=== PATIENT | male | born 1990 | race Caucasian/White ===

== ENCOUNTER 2017-04-30 23:17 | Emergency (ER) | payer OTHER ==
[2017-04-30 23:25] VITALS: O2SAT 95
[2017-04-30] MEDS ORDERED: ONDANSETRON DISINTEGRATING 4 MG TAB ONE (23:26)
[2017-04-30] MEDS ORDERED: ONDANSETRON DISINTEGRATING 4 MG TAB PO ONE (23:27)
[2017-04-30] MEDS ORDERED: NS 1,000 ML IV ONE (23:56)
[2017-05-01 00:28] LABS: ANION GAP 16 mEq/L (8-16); CALCIUM 9.5 mg/dL (8.5-10.4); CARBON DIOXIDE 19 mEq/l (22-31); CHLORIDE 107 mEq/L (97-110); CREATININE 1.1 mg/dL (0.7-1.3); GLOMERULAR FILTRATION RATE > 60; GLUCOSE 89 mg/dL (70-100); POTASSIUM 4.5 mEq/L (3.5-5.2); SODIUM 142 mEq/L (134-144)
[2017-05-01 00:31] LABS: % IMMATURE GRANULYOCYTES 0.5 % (0.0-1.1); ABSOLUTE IMMATURE GRANULOCYTES 0.03 10^3/uL (0.00-0.10); ADD DIFF? NO; ADD MORPH? NO; ADD SCAN? NO; ATYPICAL LYMPHOCYTE FLAG 10 (0-99); FRAGMENT RBC FLAG 0 (0-99); HEMATOCRIT 44.2 % (40.0-51.0); HEMOGLOBIN 15.1 g/dL (13.7-17.5); LEFT SHIFT FLG 0 (0-99); LIPEMIA HEMOLYSIS FLAG 90 (0-99); MEAN CELL HEMOGLOBIN CONCENTR. 34.2 g/dL (32.4-36.7); MEAN CELL VOLUME 87.7 fL (81.5-99.8); MEAN PLATELET VOLUME 9.9 fL (8.7-11.7); PLATELET CLUMPS FLAG 10 (0-99); PLATELET COUNT 331 10^3/uL (150-400); RED BLOOD CELL COUNT 5.04 10^6/uL (4.40-6.38); RED CELL DISTRIBUTION WIDTH 11.9 % (11.5-15.2)
--- NOTE | 2017-05-01 01:09 | EDPHY ---
H & P Stated Complaint: abd pain Time Seen by Provider: 05/01/17 00:53 HPI/ROS: HPI The patient presents with abdominal pain, vomiting, anxiety and dizziness for the last several hours. He is status post what sounds to be perianal abscess drainage [address] Edward. He is having pain which she has had postoperatively, though it got worse after drinking several alcoholic drinks tonight. The pain is sharp, does not radiate, and is associated with vomiting. He has been able to tolerate fluids since receiving a L of normal saline in the ER. He is on Percocet for pain. He is actually now feeling better. REVIEW OF SYSTEMS Constitutional: No fever, no chills. Eyes: No discharge. ENT: No sore throat. Cardiovascular: No chest pain, no palpitations. Respiratory: No cough, no shortness of breath. Gastrointestinal: See HPI Genitourinary: No hematuria. Musculoskeletal: No back pain. Skin: No rashes. Neurological: No headache. PMHx: History of anxiety, 5 days status post incision and drainage of rectal abscess per his report Soc Hx: Housed, alcohol use PHYSICAL General Appearance: Alert, no distress Eyes: Pupils equal and round no pallor or injection ENT, Mouth: Mucous membranes moist Respiratory: There are no retractions, lungs are clear to auscultation Cardiovascular: Regular rate and rhythm Gastrointestinal: Abdomen is soft and non-tender, no masses, bowel sounds normal Rectal: There is a 1 cm surgical incision at approximately 5 o'clock distal to the anal verge which is tender to palpation draining a small amount of serous fluid, there is no erythema, warmth, area of fluctuance Neurological: A&O, moves all extremities Skin: Warm and dry, no rashes Musculoskeletal: Neck is supple non tender Extremities: symmetrical, full range of motion Psychiatric: Patient is oriented X 3, there is no agitation Source: Patient Exam Limitations: No limitations - Personal History Current Tetanus/Diphtheria Vaccine: Yes Current Tetanus Diphtheria and Acellular Pertussis (TDAP): Yes Tetanus Vaccine Date: Within the last ten years - Medical/Surgical History Hx Asthma: Yes Hx Chronic Respiratory Disease: No Hx Diabetes: No Hx Cardiac Disease: No Hx Renal Disease: No Hx Cirrhosis: No Hx Alcoholism: No Hx HIV/AIDS: No Hx Splenectomy or Spleen Trauma: No Other PMH: hernia surgery, bipolar, anxiety, depression, rectal abcess, gastric ulcers - Social History Smoking Status: Never smoked Constitutional: Initial Vital Signs Temperature (C) 36.9 C 04/30/17 23:23 Heart Rate 108 H 04/30/17 23:23 Respiratory Rate 20 04/30/17 23:23 Blood Pressure 143/93 H 04/30/17 23:23 O2 Sat (%) 95 04/30/17 23:23 O2 Delivery Mode Room Air Allergies/Adverse Reactions: lamotrigine [From Lamictal] Allergy (Verified 04/14/15 21:41) oxcarbazepine [From Trileptal] Allergy (Verified 04/14/15 21:41) Home Medications: Medication Instructions Recorded ALPRAZolam [Xanax 1 MG (*)] 1 mg PO BID PRN 09/02/14 Cetirizine [ZyrTEC 10 mg (*)] 10 mg PO DAILY 09/03/14 Abilify 04/14/15 Depakote 04/14/15 Duloxetine HCl 04/14/15 Ondansetron Odt [Zofran Odt 4 mg 4 mg PO Q4PRN PRN #7 tab 04/14/15 (*)] Ondansetron Odt [Zofran Odt 4 mg 4 mg PO Q4PRN PRN #20 tab 05/31/15 (*)] Keflex 04/30/17 Medical Decision Making Differential Diagnosis: This is a 27-year-old male who is 5 days status post incision and drainage of perianal abscess. He is presenting from home after drinking several alcoholic drinks and having worsening pain. He does not have any fever. Labs were checked and there is no leukocytosis. I feel this is normal postoperative pain. Differential diagnosis includes recurrent abscess, bowel obstruction, alcohol intoxication. In the emergency room, the patient received a L of IV fluid for vomiting. He felt well afterwards. Labs were checked and he will be discharged with instructions to follow up with his surgeon as an outpatient. - Data Points Laboratory Results: Laboratory Results 04/30/17 23:46 04/30/17 23:46 04/30/17 04/30/17 23:46 23:46 WBC 6.08 10^3/uL 10^3/uL (3.80-9.50) RBC 5.04 10^6/uL 10^6/uL (4.40-6.38) Hgb 15.1 g/dL g/dL (13.7-17.5) Hct 44.2 % % (40.0-51.0) MCV 87.7 fL fL (81.5-99.8) MCH 30.0 pg pg (27.9-34.1) MCHC 34.2 g/dL g/dL (32.4-36.7) RDW 11.9 % % (11.5-15.2) Plt Count 331 10^3/uL 10^3/uL (150-400) MPV 9.9 fL fL (8.7-11.7) Neut % (Auto) 55.4 % % (39.3-74.2) Lymph % (Auto) 35.4 % % (15.0-45.0) [place] % (Auto) 6.3 % % (4.5-13.0) Eos % (Auto) 1.6 % % (0.6-7.6) Baso % (Auto) 0.8 % % (0.3-1.7) Nucleat RBC Rel Count 0.0 % % (0.0-0.2) Absolute Neuts (auto) 3.37 10^3/uL 10^3/uL (1.70-6.50) Absolute Lymphs (auto) 2.15 10^3/uL 10^3/uL (1.00-3.00) Absolute Monos (auto) 0.38 10^3/uL 10^3/uL (0.30-0.80) Absolute Eos (auto) 0.10 10^3/uL 10^3/uL (0.03-0.40) Absolute Basos (auto) 0.05 10^3/uL 10^3/uL (0.02-0.10) Absolute Nucleated RBC 0.00 10^3/uL 10^3/uL (0-0.01) Immature Gran % 0.5 % % (0.0-1.1) Immature Gran # 0.03 10^3/uL 10^3/uL (0.00-0.10) Sodium 142 mEq/L mEq/L (134-144) Potassium 4.5 mEq/L mEq/L (3.5-5.2) Chloride 107 mEq/L mEq/L (97-110) Carbon Dioxide 19 mEq/l L mEq/l (22-31) Anion Gap 16 mEq/L mEq/L (8-16) BUN 13 mg/dL mg/dL (7-23) Creatinine 1.1 mg/dL mg/dL (0.7-1.3) Estimated GFR > 60 Glucose 89 mg/dL mg/dL (70-100) Calcium 9.5 mg/dL mg/dL (8.5-10.4) Medications Given: Discontinued Medications Sodium Chloride (Ns) 1,000 mls @ 0 mls/hr IV ONCE ONE; Wide Open PRN Reason: Protocol Stop: 04/30/17 23:57 Last Admin: 04/30/17 23:56 Dose: 1,000 mls Ondansetron HCl (Zofran Odt) 4 mg PO EDNOW ONE Stop: 04/30/17 23:28 Last Admin: 04/30/17 23:28 Dose: 4 mg Departure - Departure Disposition: Home, Routine, Self-Care Clinical Impression: Rectal pain Vomiting Qualifiers: Vomiting type: unspecified Vomiting Intractability: non-intractable Nausea presence: with nausea Qualified Code(s): R11.2 - Nausea with vomiting, unspecified Condition: Good Instructions: Rectal Pain (ED) Referrals: ENOCH PARSONS [Primary Care Provider] - As per Instructions Jay Alvarado MD [Medical Doctor] - As per Instructions
[2017-05-01 01:17] VITALS: BP 134/85; PULSE 91; RESP 16; TEMP 98.2
== END 2017-05-01 01:17 | disposition home or self-care (01) ==
DX: K62.89 Other specified diseases of anus and rectum (principal); R11.2 Nausea with vomiting, unspecified

== ENCOUNTER 2018-01-12 21:39 | Emergency (ER) | payer OTHER ==
[2018-01-12 21:50] VITALS: RESP 18
[2018-01-12 23:27] LABS: PLATELET COUNT 296 10^3/uL (150-400)
--- NOTE | 2018-01-12 23:32 | EDPHY ---
H & P Time Seen by Provider: 01/12/18 22:53 HPI/ROS: CHIEF COMPLAINT: Cough, extreme fatigue HISTORY OF PRESENT ILLNESS: 27-year-old male presents to the emergency department with ongoing cough for last 3 weeks. He states that he has been to urgent care twice. He was on prednisone and Zofran finished 1 week ago. Prior to that he went to another urgent care and had negative influenza negative strep pharyngitis. He was given Tessalon Perles for the cough. No vomiting currently. He has felt nauseous. The patient has described extreme fatigue over last week. He feels short of breath. He is concerned that he may have pneumonia. He did receive a flu shot this year. His girlfriend is not ill with similar symptoms. No recent travel. Patient currently describes extreme diffuse headache. No neck or back pain. No abdominal pain or vomiting. REVIEW OF SYSTEMS: Constitutional: Subjective fevers, chills Eyes: No double or blurry vision. ENT: Sore throat now mostly resolved Respiratory: Cough, shortness of breath Cardiac: No chest pain. Gastrointestinal: Nausea. No abdominal pain, vomiting or diarrhea. Genitourinary: No dysuria. Musculoskeletal: No neck or back pain. Skin: No rashes. Neurological: headache. Past Medical/Surgical History: Depression, anxiety, bipolar, hernia repair, gastric ulcers, rectal abscess Primary care provider is Dr. Enoch Parsons Social History: Single Smoking Status: Never smoked Physical Exam: General Appearance: Alert, no distress. Palpable lump to the left parietal aspect of the scalp. No palpable crepitus or other bony abnormality. No evidence of depressed skull fracture. Eyes: Pupils equal and round. Extraocular motions are all intact. ENT: Mouth: Mucous membranes moist. Respiratory: No wheezing, rhonchi, or rales, lungs are clear to auscultation. Cardiovascular: Regular rate and rhythm. Gastrointestinal: Abdomen is soft and nontender, no masses, no rebound or guarding, bowel sounds normal. Neurological: Alert and oriented x 3, cranial nerves II through XII grossly intact Skin: Warm and dry, no rashes. Musculoskeletal: Nontender to palpate along the cervical, thoracic or lumbar spine. Neck is supple. Extremities: Full range of motion and no peripheral edema. Psychiatric: Patient is oriented X 3, there is no agitation. Constitutional: Initial Vital Signs Temperature (C) 37.0 C 01/12/18 21:47 Heart Rate 107 H 01/12/18 21:47 Respiratory Rate 18 01/12/18 21:47 Blood Pressure 154/109 H 01/12/18 21:47 O2 Sat (%) 93 01/12/18 21:47 O2 Delivery Mode Room Air Allergies/Adverse Reactions: lamotrigine [From Lamictal] Allergy (Verified 01/12/18 21:50) oxcarbazepine [From Trileptal] Allergy (Verified 01/12/18 21:50) Home Medications: Medication Instructions Recorded ALPRAZolam [Xanax 1 MG (*)] 1 mg PO BID PRN 09/02/14 Cetirizine [ZyrTEC 10 mg (*)] 10 mg PO DAILY 09/03/14 Abilify 04/14/15 Depakote 04/14/15 Duloxetine HCl 04/14/15 [place] Carbonate 01/12/18 Medical Decision Making - Diagnostics Imaging Results: Imaging Impressions Chest X-Ray 01/12/18 23:13 Impression: Normal chest. Head CT 01/12/18 23:14 Impression: Normal noncontrast CT of the brain. 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 Results called to. Ann Altamirano PA-C at the time of the interpretation. Imaging: I viewed and interpreted images myself ED Course/Re-evaluation: 27-year-old male presents to the emergency department with cough, extreme fatigue and shortness of breath. Chest x-ray has been ordered and is pending. I do not think repeat influenza swab for RSV swab indicated as the patient has been sick for over 3 weeks. While the patient was in the emergency department. He apparently fell asleep and then fell out of the bed hitting his head on the ground. He has a palpable lump and tenderness with palpation to the left parietal aspect of his scalp. He describes severe headache diffusely. I discussed the pros and cons of CT imaging of his brain including radiation exposure and the patient requests CT scan. CT imaging of the brain was reported to me as normal by Dr. Bentley Whitman at 11: 30 p.m.. Chest x-ray is pending. The patient also takes of number of psychiatric medications including lithium. He is due for lithium level. Laboratory studies have been ordered and are pending. Mononucleosis was positive. Chest x-ray reveals no signs of pneumonia. His laboratory studies are otherwise unremarkable with the exception of atypical lymphocytes and positive Monospot. The patient was instructed to avoid any contact sports or skiing until cleared by his primary care provider. He understands that mono is contagious. He should return to the emergency department if he develops abdominal pain or vomiting or if he feels worse in any way. Patient feels comfortable with this plan. Differential Diagnosis: Shortness of breath including but not limited to pulmonary infectious process, COPD, asthma, pulmonary embolus and congestive heart failure. Head injury including but not limited to concussion, skull fracture, intraparenchymal contusion, subarachnoid, subdural and epidural hematoma. - Data Points Laboratory Results: Laboratory Results 01/12/18 23:20 01/12/18 23:20 01/12/18 01/12/18 01/12/18 23:20 23:20 23:20 WBC 9.36 10^3/uL 10^3/uL (3.80-9.50) RBC 5.44 10^6/uL 10^6/uL (4.40-6.38) Hgb 16.5 g/dL g/dL (13.7-17.5) Hct 47.7 % % (40.0-51.0) MCV 87.7 fL fL (81.5-99.8) MCH 30.3 pg pg (27.9-34.1) MCHC 34.6 g/dL g/dL (32.4-36.7) RDW 12.3 % % (11.5-15.2) Plt Count 296 10^3/uL 10^3/uL (150-400) MPV 9.8 fL fL (8.7-11.7) Neut % (Auto) 53.3 % % (39.3-74.2) Lymph % (Auto) 35.7 % % (15.0-45.0) [place] % (Auto) 6.0 % % (4.5-13.0) Eos % (Auto) 3.6 % % (0.6-7.6) Baso % (Auto) 0.5 % % (0.3-1.7) Nucleat RBC Rel Count 0.0 % % (0.0-0.2) Absolute Neuts (auto) 4.99 10^3/uL 10^3/uL (1.70-6.50) Absolute Lymphs (auto) 3.34 10^3/uL H 10^3/uL (1.00-3.00) Absolute Monos (auto) 0.56 10^3/uL 10^3/uL (0.30-0.80) Absolute Eos (auto) 0.34 10^3/uL 10^3/uL (0.03-0.40) Absolute Basos (auto) 0.05 10^3/uL 10^3/uL (0.02-0.10) Absolute Nucleated RBC 0.00 10^3/uL 10^3/uL (0-0.01) Immature Gran % 0.9 % % (0.0-1.1) Immature Gran # 0.08 10^3/uL 10^3/uL (0.00-0.10) Sodium 143 mEq/L mEq/L (135-145) Potassium 4.5 mEq/L mEq/L (3.5-5.2) Chloride 99 mEq/L mEq/L (97-110) Carbon Dioxide 26 mEq/l mEq/l (22-31) Anion Gap 18 mEq/L H mEq/L (8-16) BUN 12 mg/dL mg/dL (7-23) Creatinine 1.3 mg/dL mg/dL (0.7-1.3) Estimated GFR > 60 Glucose 96 mg/dL mg/dL (70-100) Calcium 10.0 mg/dL mg/dL (8.5-10.4) [place] 0.7 mEq/L mEq/L (0.6-1.2) [place]os[place] POSITIVE H (NEGATIVE) Departure - Departure Disposition: Home, Routine, Self-Care Clinical Impression: Mononucleosis, Cough Fatigue Qualifiers: Fatigue type: unspecified Qualified Code(s): R53.83 - Other fatigue Condition: Fair Instructions: Mononucleosis (ED), Fatigue (ED), Acute Cough (ED) Additional Instructions: You have tested positive for mono. You should not do any contact sports or ski the until cleared by your primary care provider. Return to the emergency department if you developed abdominal pain, vomiting, shortness of breath, fever , or if you feel worse in any way. Your blood pressure in the emergency department today was high. 159/109. This needs to be recheck by her primary care provider. If you have consistently high readings, you should be started on antihypertensive medications. Referrals: ENOCH PARSONS [Primary Care Provider] - 5-7 days, call for appt.
[2018-01-13 00:17] VITALS: BP 166/98; PULSE 96; TEMP 98.2; O2SAT 95
== END 2018-01-13 00:17 | disposition home or self-care (01) ==
DX: R05 Cough (principal); B27.90 Infectious mononucleosis, unspecified without complication

== ENCOUNTER 2018-04-06 04:08 | Emergency (ER) | payer OTHER ==
--- NOTE | 2018-04-06 04:31 | EDPHY ---
H & P Stated Complaint: Severe mid back pain Time Seen by Provider: 04/06/18 04:31 HPI/ROS: HPI CHIEF COMPLAINT: Low back pain HISTORY OF PRESENT ILLNESS: Patient very pleasant 28-year-old male, history of hypertension and bipolar disorder presents emergency room with low back pain. Patient reports paravertebral lumbar back pain and bilateral CVA pain. He denies any injuries had some chronic low back pain for months however never this severe. He was unable to sleep tonight and came to the emergency room for further evaluation. Describes pain at a 8/10 bilateral CVA pain. The pain does not radiate to his abdomen. He has not had any urinary symptoms. Denies testicular pain. Patient states that he has not any vomiting or fever. No new injury that he knows of. The pain does not go anywhere stays bilateral CVA region. Denies any midline lumbar pain, denies leg weakness, denies numbness or tingling, denies saddle anesthesia, denies fever. Past Medical History: Hypertension, bipolar disorder, anxiety Past Surgical History: No recent surgical history Social History: Denies daily use of drugs alcohol tobacco. Family History: Noncontributory ROS REVIEW OF SYSTEMS: A comprehensive 10 point review of systems is otherwise negative aside from elements mentioned in the history of present illness. Exam Constitutional triage nursing summary reviewed, vital signs reviewed, awake/ alert. Eyes normal conjunctivae and sclera, EOMI, PERRLA. HENT normal inspection, atraumatic, moist mucus membranes, no epistaxis, neck supple/ no meningismus, no raccoon eyes. Respiratory clear to auscultation bilaterally, normal breath sounds, no respiratory distress, no wheezing. Cardiovascular rate normal, regular rhythm, no murmur, no edema, distal pulses normal. Gastrointestinal soft, non-tender, no rebound, no guarding, normal bowel sounds, no distension, no pulsatile mass. Genitourinary bilateral CVA tenderness on exam Musculoskeletal I do not appreciate midline pain from there is no leg weakness, no saddle anesthesia no midline vertebral tenderness, full range of motion, no calf swelling, no tenderness of extremities, no meningismus, good pulses, neurovascularly intact. Skin pink, warm, & dry, no rash, skin atraumatic. Neurologic awake, alert and oriented x 3, AAOx3, moves all 4 extremities equally, motor intact, sensory intact, CN II-XII intact, normal cerebellar, normal vision, normal speech. Psychiatric normal mood/affect. Heme/Lymph/Immune no lymphadenopathy. Differential Diagnosis: Includes but is not limited to in a particular order pyelonephritis, UTI, musculoskeletal back pain, disc herniation, annular tear, compression fracture of the spine, electrolyte disturbance, dehydration, rhabdomyolysis Medical Decision Making: Plan for this patient IV established with IV pain control 1 mg Dilaudid for pain control, IV Zofran for nausea, CT scan abdomen pelvis without contrast to help delineate the kidneys and back pain. Gentle IV hydration and re-evaluate. Re-evaluation: 0549: CT scan abdomen pelvis without contrast negative for acute inflammatory process no evidence kidney stones or pyelonephritis, no evidence of acute back process specifically no lumbar fracture called to me by Dr. Mays. 0609: Blood work has been reviewed. Unremarkable no high white count. Electrolytes appropriate. Urinalysis shows no evidence of infection. CT scan of the abdomen pelvis without contrast shows no evidence of abnormality. Clinically on exam he has paravertebral lumbar spinal pain and CVA pain. It Is possible he has musculoskeletal back pain. I will prescribe anti-inflammatory pain medicine and some muscle relaxants. He responded well here with IV Dilaudid IV Toradol and is feeling much better. Clinically on exam he has no red flags. There is no leg weakness there is no referred pain down his legs there is no saddle anesthesia there is no fever. Most likely musculoskeletal back pain strain. Recommend following up his primary care doctor Return precautions discussed with him he understands return emergency room if develops worsening back pain fever or any further questions or concerns. Source: Patient - Personal History Current Tetanus/Diphtheria Vaccine: No Current Tetanus Diphtheria and Acellular Pertussis (TDAP): No Tetanus Vaccine Date: Within the last ten years - Medical/Surgical History Hx Asthma: Yes Hx Chronic Respiratory Disease: No Hx Diabetes: No Hx Cardiac Disease: No Hx Renal Disease: No Hx Cirrhosis: No Hx Alcoholism: No Hx HIV/AIDS: No Hx Splenectomy or Spleen Trauma: No Other PMH: hernia surgery, bipolar, anxiety, depression, rectal abcess, gastric ulcers, chronic back pain - Social History Smoking Status: Never smoked Constitutional: Initial Vital Signs Temperature (C) 36.4 C 04/06/18 04:10 Heart Rate 81 04/06/18 04:10 Respiratory Rate 18 04/06/18 04:10 Blood Pressure 139/98 H 04/06/18 04:10 O2 Sat (%) 98 04/06/18 04:10 O2 Delivery Mode Room Air O2 (L/minute) 2 Allergies/Adverse Reactions: lamotrigine [From Lamictal] Allergy (Verified 01/12/18 21:50) oxcarbazepine [From Trileptal] Allergy (Verified 01/12/18 21:50) Home Medications: Medication Instructions Recorded Abilify 04/14/15 [place] Carbonate 01/12/18 Desvenlafaxine 04/06/18 Diazepam [Valium 5 MG (*)] 5 mg PO TID PRN #10 tab 04/06/18 Gabapentin 04/06/18 Ibuprofen [Motrin (*)] 800 mg PO Q6-8PRN #10 tab 04/06/18 Levothyroxine 04/06/18 Lisinopril 04/06/18 Olanzapine 04/06/18 Propranolol HCl 04/06/18 Valium 04/06/18 Medical Decision Making - Data Points Laboratory Results: Laboratory Results 04/06/18 04:50 04/06/18 04:50 04/06/18 04/06/18 04/06/18 05:30 04:50 04:50 WBC 6.08 10^3/uL 10^3/uL (3.80-9.50) RBC 4.63 10^6/uL 10^6/uL (4.40-6.38) Hgb 14.6 g/dL g/dL (13.7-17.5) Hct 42.2 % % (40.0-51.0) MCV 91.1 fL fL (81.5-99.8) MCH 31.5 pg pg (27.9-34.1) MCHC 34.6 g/dL g/dL (32.4-36.7) RDW 12.6 % % (11.5-15.2) Plt Count 229 10^3/uL 10^3/uL (150-400) MPV 11.1 fL fL (8.7-11.7) Neut % (Auto) 45.0 % % (39.3-74.2) Lymph % (Auto) 43.3 % % (15.0-45.0) [place] % (Auto) 7.7 % % (4.5-13.0) Eos % (Auto) 3.1 % % (0.6-7.6) Baso % (Auto) 0.7 % % (0.3-1.7) Nucleat RBC Rel Count 0.0 % % (0.0-0.2) Absolute Neuts (auto) 2.74 10^3/uL 10^3/uL (1.70-6.50) Absolute Lymphs (auto) 2.63 10^3/uL 10^3/uL (1.00-3.00) Absolute Monos (auto) 0.47 10^3/uL 10^3/uL (0.30-0.80) Absolute Eos (auto) 0.19 10^3/uL 10^3/uL (0.03-0.40) Absolute Basos (auto) 0.04 10^3/uL 10^3/uL (0.02-0.10) Absolute Nucleated RBC 0.00 10^3/uL 10^3/uL (0-0.01) Immature Gran % 0.2 % % (0.0-1.1) Immature Gran # 0.01 10^3/uL 10^3/uL (0.00-0.10) Sodium 138 mEq/L mEq/L (135-145) Potassium 4.6 mEq/L mEq/L (3.3-5.0) Chloride 104 mEq/L mEq/L (97-110) Carbon Dioxide 21 mEq/l L mEq/l (22-31) Anion Gap 13 mEq/L mEq/L (8-16) BUN 10 mg/dL mg/dL (7-23) Creatinine 1.0 mg/dL mg/dL (0.7-1.3) Estimated GFR > 60 Glucose 103 mg/dL H mg/dL (70-100) Calcium 8.8 mg/dL mg/dL (8.5-10.4) Total Bilirubin 0.6 mg/dL mg/dL (0.1-1.4) Conjugated Bilirubin 0.6 mg/dL H mg/dL (0.0-0.5) Unconjugated Bilirubin 0.0 mg/dL mg/dL (0.0-1.1) AST 91 IU/L H IU/L (17-59) ALT 213 IU/L H IU/L (21-72) Alkaline Phosphatase 56 IU/L IU/L (38-126) Creatine Kinase 162 IU/L IU/L (0-224) Total Protein 7.0 g/dL g/dL (6.3-8.2) Albumin 4.3 g/dL g/dL (3.5-5.0) Lipase 65 IU/L IU/L (23-300) Urine Color YELLOW Urine Appearance HAZY Urine pH 5.0 (5.0-7.5) Ur Specific [place] 1.015 (1.002-1.030) Urine Protein NEGATIVE (NEGATIVE) Urine Ketones NEGATIVE (NEGATIVE) Urine Blood NEGATIVE (NEGATIVE) Urine Nitrate NEGATIVE (NEGATIVE) Urine Bilirubin NEGATIVE (NEGATIVE) Urine Urobilinogen NEGATIVE EU EU (0.2-1.0) Ur Leukocyte Esterase NEGATIVE (NEGATIVE) Urine Glucose NEGATIVE (NEGATIVE) Medications Given: Discontinued Medications Hydromorphone HCl (Dilaudid) 1 mg IVP EDNOW ONE Stop: 04/06/18 04:35 Last Admin: 04/06/18 04:46 Dose: 1 mg Sodium Chloride (Ns) 1,000 mls @ 0 mls/hr IV EDNOW ONE; Wide Open PRN Reason: Protocol Stop: 04/06/18 04:35 Last Admin: 04/06/18 04:45 Dose: 1,000 mls Ketorolac Tromethamine (Toradol) 15 mg IVP EDNOW ONE Stop: 04/06/18 05:21 Last Admin: 04/06/18 05:26 Dose: 15 mg Ondansetron HCl (Zofran) 4 mg IVP EDNOW ONE Stop: 04/06/18 04:35 Last Admin: 04/06/18 04:45 Dose: 4 mg Departure - Departure Disposition: Home, Routine, Self-Care Clinical Impression: Low back strain Qualifiers: Encounter type: initial encounter Qualified Code(s): S39.012A - Strain of muscle, fascia and tendon of lower back, initial encounter Condition: Good Instructions: Low Back Strain (ED) Additional Instructions: 1. Take it easy over the next 1-2 weeks. 2. You may ice your back. 3. Anti-inflammatory pain medicine for pain control. 4. Muscle relaxants as prescribed. 5. Return emergency room if there is worsening symptoms questions or concerns. 6. Please follow up with her primary care doctor Referrals: NONE *PRIMARY CARE P,. [Primary Care Provider] - As per Instructions Prescriptions: Diazepam [Valium 5 MG (*)] 5 mg PO TID PRN #10 tab PRN Reason: Spasms Ibuprofen [Motrin (*)] 800 mg PO Q6-8PRN #10 tab
[2018-04-06] MEDS ORDERED: HYDROmorphONE/DILAUDID 2 MG/ML INJ IVP ONE (04:34)
[2018-04-06] MEDS ORDERED: ONDANSETRON 4 MG/2 ML VIAL IVP ONE (04:34)
[2018-04-06] MEDS ORDERED: NS 1,000 ML IV ONE (04:34)
[2018-04-06] MEDS ORDERED: HYDROmorphONE/DILAUDID 1 MG/ML INJ ONE (04:37)
[2018-04-06 05:00] LABS: PLATELET COUNT 229 10^3/uL (150-400)
[2018-04-06 05:14] LABS: CREATINE KINASE 162 IU/L (0-224)
[2018-04-06] MEDS ORDERED: KETOROLAC 15 MG/1 ML SDV IVP ONE (05:20)
[2018-04-06 06:21] VITALS: BP 107/83
== END 2018-04-06 06:21 | disposition home or self-care (01) ==
DX: S39.012A Strain of muscle, fascia and tendon of lower back, initial encounter (principal); J45.909 Unspecified asthma, uncomplicated; I10 Essential (primary) hypertension; E86.9 Volume depletion, unspecified; X58.XXXA Exposure to other specified factors, initial encounter
CPT/HCPCS: 96374; J1170; J1885; J2405

== ENCOUNTER 2018-08-03 17:54 | Emergency (ER) | payer OTHER ==
--- NOTE | 2018-08-03 18:41 | EDPHY ---
General Time Seen by Provider: 08/03/18 18:37 Narrative: CHIEF COMPLAINT: Shoulder pain HISTORY OF PRESENT ILLNESS: Patient presents with complaints of left shoulder pain after injury. He says that he got up at 4am and walked into a door way accidentally. He says he struck his left shoulder and no where else. He did not fall or hit his head. His only complaint is left shoulder pain. It is rated as severe. Difficulty sleep. No position of comfort. Does not radiate. Worse with movement of the arm including scapular retraction. No tenderness to palpation. No numbness, tingling or weakness. No wrist drop. No other associated complaints or modifying factors DOMINANT EXTREMITY: Right-hand dominant ESTABLISHED ORTHOPEDIST: None REVIEW OF SYSTEMS: Ten systems reviewed and are negative unless otherwise noted in the HPI PAST MEDICAL HISTORY: Depression, gastric ulcers, chronic back pain, bipolar, anxiety PAST SURGICAL HISTORY: Hernia repair, rectal abscess SOCIAL HISTORY: Nonsmoker. Lives independently with his significant other. FAMILY HISTORY: EXAMINATION: General Appearance: Alert, no distress Cardiovascular: Good signs of perfusion with brisk cap refill in the left fingers and 2+ radial pulse. Neurological: A&O, light sensory symmetric, engine lathe set up operator, triceps and interossei strength symmetric Skin: Warm and dry, no rash no petechiae or purpura Extremities: Mild tenderness of the left AC joint. Minimal tenderness of the left deltoid range of motion of the shoulder symmetric. No step-off or deformity. There is negative empty can. Negative apprehension. Neuro intact distally with soft compartments on the left upper extremity Psychiatric: Mood and affect normal DIFFERENTIAL DIAGNOSES: Including but not limited to sprain, strain, contusion, hematoma, fracture, dislocation, subluxation, separation MDM: 6:35 p.m. Acute left shoulder injury with tenderness in the AC joint and over the deltoid. There is no step-off or deformity. No tenderness of the scapula. Range of motion is intact without deficit. X-ray is pending 7:00 p.m. X-rays negative for any acute findings. Suspect sprain versus contusion of the shoulder. He will be placed in a sling for comfort. I did review his prescription monitoring program report. He does have multiple sedating medications including benzodiazepine. I do not feel it is safe for discharge home with opiates. He will be given 1 dose here. I prescribed hydroxyzine for facilitation of sleep for him. We discussed follow up with Orthopedics. We discussed ED precautions for numbness, tingling, weakness or increasing pain. He is comfortable this plan discharged home stable condition. SUPERVISION: This patient was independently evaluated without direct involvement of or examination by the attending physician. - Diagnostics Imaging Results: Imaging Impressions Shoulder X-Ray 08/03/18 18:07 Impression: No acute findings in the shoulder. - History Smoking Status: Never smoked - Objective Vital Signs: Initial Vital Signs Temperature (C) 97.7 F 08/03/18 17:57 Heart Rate 71 08/03/18 17:57 Respiratory Rate 16 08/03/18 17:57 Blood Pressure 159/101 H 08/03/18 17:57 O2 Sat (%) 95 08/03/18 17:57 O2 Delivery Mode Room Air Allergies/Adverse Reactions: lamotrigine [From Lamictal] Allergy (Verified 08/03/18 17:56) oxcarbazepine [From Trileptal] Allergy (Verified 08/03/18 17:56) Home Medications: Medication Instructions Recorded Abilify 04/14/15 [place] Carbonate 01/12/18 Desvenlafaxine 04/06/18 Diazepam [Valium 5 MG (*)] 5 mg PO TID PRN #10 tab 04/06/18 Gabapentin 04/06/18 Ibuprofen [Motrin (*)] 800 mg PO Q6-8PRN #10 tab 04/06/18 Levothyroxine 04/06/18 Lisinopril 04/06/18 Olanzapine 04/06/18 Propranolol HCl 04/06/18 Valium 04/06/18 hydrOXYzine HCL [Hydroxyzine HCl] 50 mg PO Q6-8PRN PRN #12 tablet 08/03/18 Medications Given: Discontinued Medications Oxycodone/Acetaminophen (Percocet 5/325) 1 tab PO EDNOW ONE Stop: 08/03/18 18:48 Last Admin: 08/03/18 18:57 Dose: 1 tab Departure - Departure Disposition: Home, Routine, Self-Care Clinical Impression: Sprain of shoulder, left Qualifiers: Encounter type: initial encounter Shoulder sprain type: unspecified sprain Qualified Code(s): S43.402A - Unspecified sprain of left shoulder joint, initial encounter Shoulder contusion Qualifiers: Encounter type: initial encounter Laterality: left Qualified Code(s): S40.012A - Contusion of left shoulder, initial encounter Condition: Good Instructions: Shoulder Sprain (ED) Additional Instructions: 1. Medications as discussed as needed, including ibuprofen 600mg every 8 hours as needed. Do not take in conjunction with anticoagulants or other NSAIDs 2. Follow up with Orthopedics for definitive care 3. Rest, ice and elevation often. 4. Hydroxyzine as prescribed as needed to facilitate sleep 5. ED precautions as discussed for worsening pain, redness, fever, changes in range of motion, changes in sensation Referrals: NONE *PRIMARY CARE P,. [Primary Care Provider] - As per Instructions Darin Castellano MD [Medical Doctor] - As per Instructions Prescriptions: hydrOXYzine HCL [Hydroxyzine HCl] 50 mg PO Q6-8PRN PRN #12 tablet PRN Reason: facilitate sleep
[2018-08-03] MEDS ORDERED: OXYCODONE/APAP 5/325 TAB PO ONE (18:47)
[2018-08-03 19:04] VITALS: BP 120/78
== END 2018-08-03 19:06 | disposition home or self-care (01) ==
DX: S43.402A Unspecified sprain of left shoulder joint, initial encounter (principal); S40.012A Contusion of left shoulder, initial encounter; W22.01XA Walked into wall, initial encounter
CPT/HCPCS: A4565

== ENCOUNTER 2018-08-07 20:08 | Emergency (ER) | payer OTHER ==
[2018-08-07 20:24] VITALS: BP 108/80
--- NOTE | 2018-08-07 21:16 | EDPHY ---
H & P Time Seen by Provider: 08/07/18 21:13 HPI/ROS: CHIEF COMPLAINT: Chronic left hand pain HISTORY OF PRESENT ILLNESS: Patient is a 20-year-old male here with chronic left hand pain secondary to multiple fractures to the left hand. States there is no recent injury but does report increasing pain. He has not ever followed up with surgeon since his last injury. Denies any numbness thumb a swelling, erythema, fever. REVIEW OF SYSTEMS: Constitutional: No fever, no chills. Eyes: No discharge. ENT: No sore throat. Cardiovascular: No chest pain, no palpitations. Respiratory: No cough, no shortness of breath. Gastrointestinal: No abdominal pain, no vomiting. Genitourinary: No hematuria. Musculoskeletal: No back pain. Skin: No rashes. Neurological: No headache. Smoking Status: Never smoked Physical Exam: General Appearance: Alert and no distress. Eyes: Pupils equal and round no injection. Respiratory: Chest is nontender, lungs are clear to auscultation. Cardiac: regular rate and rhythm. Gastrointestinal: Abdomen is soft and nontender, no masses, bowel sounds normal. Musculoskeletal: Neck is supple and nontender. Extremities have full range of motion and are nontender. Normal-appearing left hand Skin: No rashes or lesions. Constitutional: Initial Vital Signs Temperature (C) 36.6 C 08/07/18 20:22 Heart Rate 96 08/07/18 20:22 Respiratory Rate 20 08/07/18 20:22 Blood Pressure 108/80 08/07/18 20:22 O2 Sat (%) 94 08/07/18 20:22 O2 Delivery Mode Room Air Allergies/Adverse Reactions: lamotrigine [From Lamictal] Allergy (Verified 08/07/18 20:22) oxcarbazepine [From Trileptal] Allergy (Verified 08/07/18 20:22) Home Medications: Medication Instructions Recorded Abilify 04/14/15 [place] Carbonate 01/12/18 Desvenlafaxine 04/06/18 Diazepam [Valium 5 MG (*)] 5 mg PO TID PRN #10 tab 04/06/18 Gabapentin 04/06/18 Ibuprofen [Motrin (*)] 800 mg PO Q6-8PRN #10 tab 04/06/18 Levothyroxine 04/06/18 Lisinopril 04/06/18 Olanzapine 04/06/18 Propranolol HCl 04/06/18 Valium 04/06/18 hydrOXYzine HCL [Hydroxyzine HCl] 50 mg PO Q6-8PRN PRN #12 tablet 08/03/18 Diclofenac Sodium 1% [Voltaren Gel 2 gm TP BID #1 tube 08/07/18 (*)] Hydrocodone/APAP 5/325 [[place] 1 tab PO Q6 #6 tab 08/07/18 5/325 (*)] Medical Decision Making ED Course/Re-evaluation: Have considered fracture, dislocation, compartment syndrome, tendinitis, septic joint. 20-year-old male here with chronic left hand pain. Will treat with topical anti-inflammatories and refer him to hand surgeon for further evaluation. - Data Points Medications Given: Discontinued Medications Hydrocodone Bitart/Acetaminophen ([place] 5/325) 1 tab PO EDNOW ONE Stop: 08/07/18 21:34 Last Admin: 08/07/18 21:38 Dose: 1 tab Ketorolac Tromethamine (Toradol) 30 mg IM EDNOW ONE Stop: 08/07/18 21:34 Last Admin: 08/07/18 21:37 Dose: 30 mg Departure - Departure Disposition: Home, Routine, Self-Care Clinical Impression: Hand pain, left Condition: Good Instructions: Arthralgia (ED) Additional Instructions: Follow-up with orthopedics as needed Referrals: ENOCH PARSONS [Primary Care Provider] - As per Instructions Dorie Grigsby MD [Medical Doctor] - As per Instructions Prescriptions: Diclofenac Sodium 1% [Voltaren Gel (*)] 2 gm TP BID #1 tube Hydrocodone/APAP 5/325 [[place] 5/325 (*)] 1 tab PO Q6 #6 tab
[2018-08-07] MEDS ORDERED: KETOROLAC 30 MG/1 ML SDV IM ONE (21:33)
[2018-08-07] MEDS ORDERED: HYDROCODONE/APAP 5/325 TAB PO ONE (21:33)
== END 2018-08-07 21:46 | disposition home or self-care (01) ==
DX: M79.642 Pain in left hand (principal)
CPT/HCPCS: J1885

== ENCOUNTER 2018-10-26 22:38 | Emergency (ER) | payer OTHER ==
--- NOTE | 2018-10-26 23:09 | EDPHY ---
H & P Stated Complaint: R amr pain post blood draw on 10/20 Time Seen by Provider: 10/26/18 22:54 HPI/ROS: Chief Complaint: Right arm pain HPI: 28-year-old male's been having pain in his right upper arm for the last several days. He had a blood draw from his right hand several days ago. He says that that was very painful. Since that time he has had pain develop in his right upper arm. No redness, he says it hurts to fully extend his arm. Is not warm to touch. No fevers or chills. No chest pain or shortness of breath. ROS: 10 systems were reviewed and were negative except those elements noted in the HPI. PMH: Denies Social History: No smoking Family History: non-contributory Physical Exam: Gen: Awake, Alert, No Distress HEENT: Nose: no rhinorrhea Eyes: PERRLA, EOMI Mouth: Moist mucosa Back: no CVA tenderness, no midline tenderness Ext: Right forearm is nonedematous. He has soft tissue tenderness on the medial aspect from the AC fossa up toward his axilla. There is no palpable cord. There is no erythema. Is not warm to touch. Skin: no rash Neuro: CN II-XII intact, Sensation grossly intact, Strength 5/5 in bilateral upper and lower extremities - Personal History Current Tetanus/Diphtheria Vaccine: Yes Current Tetanus Diphtheria and Acellular Pertussis (TDAP): Yes Tetanus Vaccine Date: Within the last ten years - Medical/Surgical History Hx Asthma: Yes Hx Chronic Respiratory Disease: No Hx Diabetes: No Hx Cardiac Disease: No Hx Renal Disease: No Hx Cirrhosis: No Hx Alcoholism: No Hx HIV/AIDS: No Hx Splenectomy or Spleen Trauma: No Other PMH: hernia surgery, bipolar, anxiety, depression, rectal abcess, gastric ulcers, chronic back pain HTN - Social History Smoking Status: Never smoked Constitutional: Initial Vital Signs Temperature (C) 36.6 C 10/26/18 22:43 Heart Rate 88 10/26/18 22:43 Respiratory Rate 16 10/26/18 22:43 Blood Pressure 134/90 H 10/26/18 22:43 O2 Sat (%) 97 10/26/18 22:43 O2 Delivery Mode Room Air Allergies/Adverse Reactions: lamotrigine [From Lamictal] Allergy (Verified 10/26/18 22:41) oxcarbazepine [From Trileptal] Allergy (Verified 10/26/18 22:41) Home Medications: Medication Instructions Recorded Abilify 04/14/15 [place] Carbonate 01/12/18 Desvenlafaxine 04/06/18 Gabapentin 04/06/18 Levothyroxine 04/06/18 Lisinopril 04/06/18 Olanzapine 04/06/18 Propranolol HCl 04/06/18 Valium 04/06/18 Medical Decision Making - Diagnostics Imaging Results: Imaging Impressions Extremity Venous Study 10/26/18 23:02 Impression: No evidence of vein thrombosis in the right arm. Results discussed with Dr. Judah Sanchez at 11:49 PM. Imaging: Discussed imaging studies w/ call center agent Radiologist ED Course/Re-evaluation: 20-year-old male with right arm pain status post IV blood draw distally several days ago. He is not appear to have superficial thrombophlebitis. No blood clot on ultrasound. No acute vasculitic process noted. No infectious process. Plan will be to discharge with follow-up with primary care physician. Departure - Departure Disposition: Home, Routine, Self-Care Clinical Impression: Arm pain Condition: Good Instructions: Arm Pain (ED) Additional Instructions: Follow up with primary care physician in 3-4 days if symptoms are not improving. Referrals: NONE *PRIMARY CARE P,. [Primary Care Provider] - As per Instructions
[2018-10-27 01:07] VITALS: BP 124/90
== END 2018-10-27 01:06 | disposition home or self-care (01) ==
DX: M79.601 Pain in right arm (principal)